=== PATIENT | female | born 1945 | race African-American/Black ===

== ENCOUNTER 2019-01-08 09:07 | Emergency (ER) | payer MEDICARE, OTHER ==
[~2019-01-08] VITALS: Ht 160 cm; Wt 68.0 kg
[~2019-01-08 09:07] MED LIST: FLAGYL500 MG PO; LEVAQUIN500 MG PO; LEVOTHYROXINE50 MCG PO; LISINOPRIL2.5 MG PO; METOCLOPRAMIDE10 MG PO; PROTONIX40 MG/ML PO; TYLENOL WITH C1 EACH PO
--- OUTSIDE RECORDS SUMMARY | 2019-01-08 09:09 | XMS REPORT ---
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 Allergies, Adverse Reactions, Alerts This patient has no known allergies or adverse reactions. Medications This patient has no known medications. Results Test Description Test Time Test Comments Text Results Atomic Results Result Comments CHEST SINGLE (PORTABLE) [place] [address] Patient Name: HOLLY BURGER MR #: [id number] : 1945 Age/Sex: 72/F Req #: [id number] Adm Physician: Ordered by: ERAN YUEN MD Report #: [id number] Location: ER Room/Bed: Procedure: [id number] DX/CHEST SINGLE (PORTABLE) Exam Date: 05/20/17 Exam Time: 1745 REPORT STATUS: Signed PROCEDURE: A single AP view of the chest. COMPARISON: None. INDICATIONS: BLOODY STOOLS, ABDOMINAL PAIN FINDINGS: Lines/tubes: None. Lungs: The lungs are well inflated. Questionable nodular density in the right upper lobe measuring up to 0.9 cm. There is no evidence of pneumonia or pulmonary edema. Pleura: There is no pleural effusion or pneumothorax. Heart and mediastinum: The heart and the mediastinum are unremarkable. Atherosclerotic calcifications in the aorta. Bones: No acute bony abnormality. Mild degenerative changes in bilateral humeral heads. Surgical clips in bilateral neck. IMPRESSION: Questionable 0.9 cm density in the right upper lobe. This may be an artifact. However, focal nodule cannot be excluded. No acute cardiopulmonary disease. Dictated by: Boubacar Jackson M.D. on 05/20/2017 at 18:28 Electronically approved by: Boubacar Jackson M.D. on 05/20/2017 at 18:28 Dictated By: BOUBACAR JACKSON MD 27 Transcribed By: MARKELL on 05/20/171827 COPY TO: ERAN YUEN MD CT ABDOMEN/PELVIS W [place] [address] Patient Name: HOLLY BURGER MR #: [id number] : 1945 Age/Sex: 72/F Req #: [id number] Adm Physician: Ordered by: ERAN YUEN MD Report #: [id number] Location: ER Room/Bed: Procedure: [id number] CT/CT ABDOMEN/PELVIS W Exam Date: Exam Time: REPORT STATUS: Signed EXAMINATION: CT of the abdomen and pelvis with contrast. TECHNIQUE: Helical CT images of the abdomen and pelvis were performed from the lung bases to the lesser trochanters after the intravenous administration of 100 cc of Isovue 370 and the oral administration of Gastrografin. Coronal and sagittal reformatted images were obtained. COMPARISON: None. CLINICAL HISTORY:Abdominal pain DISCUSSION: ABDOMEN/PELVIS: LOWER THORAX:Unremarkable. HEPATOBILIARY: 7 mm right hepatic lobe, 8 mm hepatic lobe, and 6 mm left hepatic lobe hypodensity. Indeterminate. No intra-or extrahepatic biliary ductal dilation. The gallbladder is normal. SPLEEN: No splenomegaly. PANCREAS: No focal masses or ductal dilatation. ADRENALS: No adrenal nodules. KIDNEYS/URETERS: 2 cm right renal cystic lesion measuring 24 Hounsfield unit, likely mildly proteinaceous. PELVIC ORGANS/BLADDER: The bladder is normal. PERITONEUM/RETROPERITONEUM: No free air or fluid. LYMPH NODES: No intra-abdominal, retroperitoneal, pelvic or inguinal lymphadenopathy. VESSELS: Limited evaluation. GI TRACT: Scattered areas of diverticulosis. No inflammatory change. Long segment thickening of the splenic flexure and the descending colon with significant luminal narrowing for example axial image 25.. BONES AND SOFT TISSUE: No bony destructive lesions. No soft tissue abnormalities. IMPRESSION: Wall thickening of the left hemicolon primarily involving the descending colon with luminal narrowing likely reflective of infectious or inflammatory bowel disease. Malignancy less likely. Signed by: Dr. Nicole Hodges M.D. on 05/20/2017 8:16 PM Dictated By: NICOLE HODGES MD 15 Transcribed By: MARTIN on 05/20/172015 COPY TO: ERAN YUEN MD
[2019-01-08] MEDS ORDERED: METHYLPREDNISOLONE SOD SUCC 125 MG/2ML VIAL IV STA (09:50)
[2019-01-08] MEDS ORDERED: FAMOTIDINE 20 MG/2 ML VIAL IV STA (09:50)
[2019-01-08] MEDS ORDERED: DIPHENHYDRAMINE HCL INJ 50 MG/ML VIAL IV ONE (10:00)
[2019-01-08] MEDS ORDERED: SODIUM CHLORIDE 0.9% 500ML 500 ML IV ONE (10:00)
[2019-01-08] MEDS ORDERED: METHYLPREDNISOLONE SOD SUCC 125 MG/2ML VIAL ONE (10:09)
[2019-01-08] MEDS ORDERED: DIPHENHYDRAMINE HCL INJ 50 MG/ML VIAL ONE (10:09)
[2019-01-08] MEDS ORDERED: FAMOTIDINE 20 MG/2 ML VIAL IV ONE (10:09)
[2019-01-08 10:34] VITALS: BP 128/71
== END 2019-01-08 10:45 | disposition home or self-care (01) ==
LOC: ER 09:07
DX: K12.2 Cellulitis and abscess of mouth (principal)
CPT/HCPCS: 83518; 87070; 99283; J1200; J2930; J7040

== ENCOUNTER 2022-06-03 12:45 | Emergency (ER) | payer MEDICARE ==
[~2022-06-03] VITALS: Ht 160 cm; Wt 68.0 kg
[2022-06-03] MEDS ORDERED: METHOCARBAMOL500 MG PO (14:40)
[2022-06-03] MEDS ORDERED: EC-NAPROXEN375 MG PO (14:40)
[2022-06-03] MEDS ORDERED: PREDNISONE50 MG PO (14:40)
== END 2022-06-03 14:54 | disposition home or self-care (01) ==
LOC: ER 12:51
DX: M54.42 Lumbago with sciatica, left side (principal); I10 Essential (primary) hypertension; K21.9 Gastro-esophageal reflux disease without esophagitis
CPT/HCPCS: 72110; 99283